=== PATIENT | male | born 1985 | race Caucasian/White ===

== ENCOUNTER 2017-06-18 12:20 | Emergency (ER) | payer OTHER ==
--- NOTE | 2017-06-18 12:41 | EDPHY ---
H & P Time Seen by Provider: 06/18/17 12:31 HPI/ROS: CHIEF COMPLAINT: Shaking HISTORY OF PRESENT ILLNESS: Brought in by EMS, the patient is a regular user of alcohol and Xanax and is visiting his brother from [place]. They drove home from [facility] [employer] today and then at home he was in the bathroom when his brother heard a coffee mug shatter, and then 30 sec later he broke the door down and saw his brother shaking in describes general tonic-clonic activity. Lasted 2 min and was confused afterwards. Brought in by EMS and now has no symptoms is although he does not remember the event. REVIEW OF SYSTEMS: Eye: no change in vision ENT: no sore throat Cardiac: no chest pain or syncope Pulmonary: no cough or SOB Abdomen: no vomiting, diarrhea, abdominal pain Musculoskeletal: no back pain or neck pain Skin: no rash Neuro: no headache Constitutional: no fever : no urinary symptoms A comprehensive 10 point review of systems is otherwise negative aside from elements mentioned in the history of present illness. PAST MEDICAL HISTORY: Prescribed attention deficit hyperactivity disorder for attention deficit, no other medical problems Family history: Negative for sudden cardiac at his age Social history: Frequent Xanax and alcohol use as noted above, no other stimulants General Appearance: Alert and conversant, cooperative. Eyes: No scleral icterus. ENT, Mouth: Normal mucous membranes. No tongue laceration or abrasion Respiratory: Normal respiratory effort, breath sounds equal, lungs are clear to auscultation. Cardiovascular: Regular rate and rhythm. Gastrointestinal: Abdomen is soft and non tender. Neurological: Alert, face symmetric, normal motor and sensory in extremities. Not tremulous, fluent speech. Skin: Warm and dry, no rashes. Musculoskeletal: No peripheral edema. Psychiatric: Not agitated. Emergency Department course/MDM: Plan EKG chemistries, noncontrast head CT scan first-time seizure. More likely to be withdrawal from benzodiazepine and alcohol. 1400: Normal noncontrast head CT per Dr. Sy. Evaluated chemistries and low CO2 consistent with primary seizure disorder. Warned no driving. 1423: Diagnostics and plan reviewed with the patient, he is not tachycardic or tremulous now. He is warned that the risk of recurrent seizures not zero, but I would not put him on any anti seizure medication right now. Constitutional: Initial Vital Signs Temperature (C) 36.9 C 06/18/17 12:20 Heart Rate 103 H 06/18/17 12:20 Respiratory Rate 16 06/18/17 12:20 Blood Pressure 159/86 H 06/18/17 12:20 O2 Sat (%) 93 06/18/17 12:20 O2 Delivery Mode Room Air Allergies/Adverse Reactions: No Known Allergies Allergy (Verified 06/18/17 12:39) Home Medications: Medication Instructions Recorded Adderall 10 mg Tablet 06/18/17 Albuterol 06/18/17 Xanax 06/18/17 Medical Decision Making - Diagnostics EKG Interpretation: 12 lead EKG for seizure versus syncope. 12-lead EKG interpreted by me; official reading is in trace master. My interpretation is sinus s rhythm rate 87 with early repolarization. Imaging Results: Imaging Impressions Head CT 06/18/17 12:38 Impression: No acute intracranial findings. If symptoms persist and clinical suspicion warrants, consider MRI. Findings discussed with MAMADOU DODD 06/18/2017 at 14:01. - Data Points Laboratory Results: Laboratory Results 06/18/17 12:00 06/18/17 12:00 06/18/17 06/18/17 12:00 12:00 WBC 14.67 10^3/uL H 10^3/uL (3.80-9.50) RBC 5.49 10^6/uL 10^6/uL (4.40-6.38) Hgb 17.5 g/dL g/dL (13.7-17.5) Hct 52.4 % H % (40.0-51.0) MCV 95.4 fL fL (81.5-99.8) MCH 31.9 pg pg (27.9-34.1) MCHC 33.4 g/dL g/dL (32.4-36.7) RDW 13.4 % % (11.5-15.2) Plt Count 300 10^3/uL 10^3/uL (150-400) MPV 10.0 fL fL (8.7-11.7) Neut % (Auto) 40.0 % % (39.3-74.2) Lymph % (Auto) 40.4 % % (15.0-45.0) [place] % (Auto) 10.8 % % (4.5-13.0) Eos % (Auto) 7.6 % % (0.6-7.6) Baso % (Auto) 0.9 % % (0.3-1.7) Nucleat RBC Rel Count 0.0 % % (0.0-0.2) Absolute Neuts (auto) 5.87 10^3/uL 10^3/uL (1.70-6.50) Absolute Lymphs (auto) 5.93 10^3/uL H 10^3/uL (1.00-3.00) Absolute Monos (auto) 1.59 10^3/uL H 10^3/uL (0.30-0.80) Absolute Eos (auto) 1.11 10^3/uL H 10^3/uL (0.03-0.40) Absolute Basos (auto) 0.13 10^3/uL H 10^3/uL (0.02-0.10) Absolute Nucleated RBC 0.00 10^3/uL 10^3/uL (0-0.01) Immature Gran % 0.3 % % (0.0-1.1) Immature Gran # 0.04 10^3/uL 10^3/uL (0.00-0.10) Sodium 144 mEq/L mEq/L (135-145) Potassium 4.2 mEq/L mEq/L (3.5-5.2) Chloride 101 mEq/L mEq/L (97-110) Carbon Dioxide 12 mEq/l L mEq/l (22-31) Anion Gap 31 mEq/L H mEq/L (8-16) BUN 17 mg/dL mg/dL (7-23) Creatinine 1.7 mg/dL H mg/dL (0.7-1.3) Estimated GFR 48 Glucose 104 mg/dL H mg/dL (70-100) Calcium 10.1 mg/dL mg/dL (8.5-10.4) Departure - Departure Disposition: Home, Routine, Self-Care Clinical Impression: Seizure Condition: Good Instructions: New-Onset Seizure in Adults (ED) Additional Instructions: No driving until your cleared for that by your follow-up physician in [place] ( get seen within the next week), or the neurologist here in [place]. Referrals: Cresencio Torres MD [Medical Doctor] - 5-7 days, call for appt.
[2017-06-18 12:44] LABS: PLATELET COUNT 300 10^3/uL (150-400)
[2017-06-18 12:45] VITALS: RESP 16; TEMP 98.4
--- NOTE | 2017-06-18 13:03 | CPEKG ---
Heart Rate: 87 RR Interval: 690 P-R Interval: 136 QRSD Interval: 74 QT Interval: 368 QTC Interval: 443 P [place]: 78 QRS [place]: 40 T Wave [place]: 41 EKG Severity - OTHERWISE NORMAL ECG - EKG Impression: SINUS ARRHYTHMIA, RATE 66-101 EKG Impression: ST ELEV, PROBABLE NORMAL EARLY REPOL PATTERN Electronically Signed By: Sabino Patel 18-Jun-2017 13:09:22
[2017-06-18 14:31] VITALS: BP 132/87; PULSE 83; O2SAT 94
== END 2017-06-18 14:30 | disposition home or self-care (01) ==
DX: R56.9 Unspecified convulsions (principal)